=== PATIENT | male | born 1980 | race African-American/Black ===

== ENCOUNTER 2018-01-25 12:24 | Emergency (ER) | payer MEDICAID ==
[~2018-01-25] VITALS: Ht 185.4 cm; Wt 87.5 kg
--- NOTE | 2018-01-25 13:08 | Emergency Room Report ---
History of Present Illness General Chief Complaint: General Complaint Source: Patient Present Illness HPI Pt. presents to the ED c/o in severity pain and bleeding about the gums on the lower right side x 2 days. pt. reports hx of gum disease, however never bleeding and tenderness. Denies fevers or chills. denies recent dental procedures or hx of immune compromise. Denies CP, Palpitations, LOC, AMS, dizziness, Changes in Vision, Sensation, paresthesias, or a sudden severe headache. Allergies: Coded Allergies: No Known Allergies (Unverified , 01/25/18) Patient History Past Medical History: see triage record Past Surgical History: none Pertinent Family History: none Immunizations: UTD Reviewed Nursing Documentation: PMH: Agreed; PSxH: Agreed Nursing Documentation-PMH Past Medical History: No History, Except For Review of Systems All Other Systems: negative except mentioned in HPI Physical Exam Vital Signs Date Time Temp Pulse Resp B/P (MAP) Pulse Ox O2 Delivery O2 Flow Rate FiO2 01/25/18 12:40 98.0 78 14 124/90 98 Room Air 98.1 Sp02 EP Interpretation: reviewed, normal General Appearance: no apparent distress, alert, GCS 15, non-toxic Head: normocephalic, atraumatic Eyes: bilateral eye normal inspection, bilateral eye PERRL ENT: hearing grossly normal, normal pharynx, normal voice, other - gingivitis posterior gum line on the right lower side, poor dentition, several broken teeth , will treat for infection. no palpable fluctuance of the gum line. Neck: full range of motion Respiratory: lungs clear, normal breath sounds, speaking full sentences Cardiovascular #1: regular rate, rhythm Musculoskeletal: back normal, gait/station normal, normal range of motion, non- tender Neurologic: alert, oriented x3, responsive, motor strength/tone normal, sensory intact, speech normal, grossly normal Psychiatric: judgement/insight normal Skin: normal color, no rash, warm/dry, well hydrated Lymphatic: no adenopathy Medical Decision Making PA Attestation Dr. Ramos is my supervising Physician whom patient management has been discussed with. Diagnostic Impression: Primary Impression: Gingivitis, acute ER Course Pt. presents to the ED c/o in severity pain and bleeding about the gums on the lower right side. pt. reports hx of gum disease, however never bleeding and tenderness. Denies fevers or chills. denies recent dental procedures or hx of immune compromise. Denies CP, Palpitations, LOC, AMS, dizziness, Changes in Vision, Sensation, paresthesias, or a sudden severe headache. Ddx considered but are not limited to cellulitis, dental abscess, orbital cellulitis, d/l tooth, dental pain. trigeminal neuralgia Vital signs: are WNL, pt. is afebrile H&PE are most consistent with gingivitis posterior gum line on the right lower side, poor dentition, several broken teeth, will treat for infection. no palpable fluctuance of the gum line. ORDERS: none required at this time, the diagnosis is clinical ED INTERVENTIONS: None required at this time. d/w pt. Dental follow up and provided list of dental clinics. - d/w pt. to take vitamin C pills. DISCHARGE: At this time pt. is stable for d/c to home. Will provide printed patient care instructions, and any necessary prescriptions. Care plan and follow up instructions have been discussed with the patient prior to discharge. Last Vital Signs Date Time Temp Pulse Resp B/P (MAP) Pulse Ox O2 Delivery O2 Flow Rate FiO2 01/25/18 12:40 98.0 78 14 124/90 98 Room Air 98.1 Disposition: HOME, SELF-CARE Condition: Stable Scripts Ascorbic Acid* (VITAMIN C*) 500 Mg Tablet 500 MG ORAL TWICE A DAY for 10 Days, #20 TAB Prov: Natalya Yin 01/25/18 Acetaminophen* (TYLENOL EXTRA STRENGTH*) 500 Mg Tablet 500 MG ORAL Q6H PRN for Mild Pain/Temp > 100.5, #20 TAB 0 Refills Prov: Natalya Yin 01/25/18 Benzocaine (ANBESOL) 9 Gm Gel..gram. 9 GM MM QID for pain, #9 GM Prov: Natalya Yin 01/25/18 Chlorhexidine Gluconate (CHLORHEXIDINE GLUCONATE) 473 Ml Mouthwash 15 ML MM TID, #473 ML Prov: Natalya Yin 01/25/18 Amoxicillin* (AMOXIL*) 500 Mg Capsule 500 MG ORAL BID for 7 Days, #14 CAP Prov: Natalya Yin 01/25/18 Patient Instructions: Gingivitis Additional Instructions: Take medications as directed. Follow up with a Dentist in 3-5 days, even if your symptoms have resolved or if you require strong pain medications. --Please review list of Dental clinics, if you do not already have a Dentist Return sooner to ED if new symptoms occur, or current symptoms become worse. - Please note that this Emergency Department Report was dictated using [employer] intern technology software, occasionally this can lead to erroneous entry secondary to interpretation by the dictation equipment. Natalya Yin Jan 25, 2018 13:08
[2018-01-25] MEDS ORDERED: ANBESOL9 G1 MM (13:10)
[2018-01-25] MEDS ORDERED: VITAMIN C500 M1 ORAL (13:10)
[2018-01-25] MEDS ORDERED: TYLENOL EXTRA500 MG ORAL (13:10)
[2018-01-25] MEDS ORDERED: CHLORHEXIDINE473 ML MM (13:10)
[2018-01-25] MEDS ORDERED: AMOXICILLIN500 MG ORAL (13:10)
[2018-01-25 13:22] VITALS: BP 136/99
== END 2018-01-25 13:48 | disposition home or self-care (01) ==
LOC: EMR 13:00
DX: K05.00 Acute gingivitis, plaque induced (principal)
CPT/HCPCS: 99282

== ENCOUNTER 2020-04-30 10:49 | Emergency (ER) | payer MEDICAID, OTHER ==
[~2020-04-30] VITALS: Ht 185.4 cm; Wt 86.2 kg
[~2020-04-30 10:49] MED LIST: AMOXICILLIN500 MG ORAL; ANBESOL9 G1 MM; CHLORHEXIDINE473 ML MM; TYLENOL EXTRA500 MG ORAL; VITAMIN C500 M1 ORAL
[2020-04-30] MEDS: Aspirin Baby 81mg ORAL ONE ×2 (11:00→11:14)
[2020-04-30 11:06] VITALS: BP 131/83
--- NOTE | 2020-04-30 11:06 | NUR ---
ED Nurse Note: Patient from home and walked in due to SOB started last night with bodyaches, headachea and dry coughing. Patient states that he feels the same symtoms of what he had last december 2019 when he tested covid positive. AAO x4, ambulatory with non labored breathing.
--- NOTE | 2020-04-30 11:44 | NUR ---
ED Nurse Note: Collected blood, Flu swab and Covid19 swab then sent.
[2020-04-30 11:45] LABS: BASOPHILS % (AUTO) 1.1 % (0.0-2.0); EOSINOPHILS % (AUTO) 1.6 % (0.0-3.0); HEMATOCRIT 47.9 % (42.0-52.0); HEMOGLOBIN 14.5 G/DL (14.2-18.0); LYMPHOCYTES % (AUTO) 29.3 % (20.0-45.0); MEAN CORPUSCULAR VOLUME 87 FL (80-99); MONOCYTES % (AUTO) 8.1 % (1.0-10.0); NEUTROPHILS % (AUTO) 59.8 % (45.0-75.0); PLATELET COUNT 217 K/UL (150-450); RED BLOOD COUNT 5.52 M/UL (4.70-6.10); RED CELL DISTRIBUTION WIDTH 14.9 % (11.6-14.8)
--- NOTE | 2020-04-30 11:46 | NUR ---
Omari kurtz in EDM - 04/30/20 at 1149 by [facility] ED Nurse Note: RN pulled out ASA 325mg from pyxis and pt refused medication.
--- NOTE | 2020-04-30 11:48 | NUR ---
ED Nurse Note: Patient refused ASA and states that he has hemophilia. Dr Mccarthy was notified.
--- NOTE | 2020-04-30 11:49 | NUR ---
ED Nurse Note: RN pulled out ASA 162 mg from pyxis and opened medication but pt refused medication.
[2020-04-30 12:00] LABS: ANION GAP 8 mmol/L (5-15); BLOOD UREA NITROGEN 6 mg/dL (7-18); CALCIUM 8.7 MG/DL (8.5-10.1); CARBON DIOXIDE 27 MMOL/L (21-32); CHLORIDE 105 MMOL/L (98-107); POTASSIUM 4.1 MMOL/L (3.5-5.1); SODIUM 139 MMOL/L (136-145)
[2020-04-30 12:03] LABS: INR 1.1 (0.9-1.1)
[2020-04-30 12:11] LABS: ALANINE AMINOTRANSFERASE 25 U/L (12-78); ALBUMIN/GLOBULIN RATIO 1.1 (1.0-2.7); ALKALINE PHOSPHATASE 49 U/L (46-116); ASPARTATE AMINO TRANSFERASE 39 U/L (15-37); BILIRUBIN,TOTAL 1.1 MG/DL (0.2-1.0)
[2020-04-30 12:14] LABS: BILIRUBIN,DIRECT 0.2 MG/DL (0.0-0.3)
[2020-04-30 12:18] LABS: CKMB 0.8 NG/ML (0.0-3.6); CREATINE KINASE 891 U/L (26-308); FERRITIN 162 NG/ML (8-388); LACTATE DEHYDROGENASE 154 U/L (81-234)
[2020-04-30 12:27] VITALS: BP 129/80
--- NOTE | 2020-04-30 12:27 | NUR ---
ED Nurse Note: Patient states that he wants to go home at this time and signed AMA form. Dr Mccarthy was notified. Pt aware of potential complications from getting discharged. AAO x4, ambulates with steady gait. Removed ID band/IV access.
--- NOTE | 2020-04-30 12:33 | Emergency Room Report ---
History of Present Illness General Chief Complaint: Flu Like Symptoms Source: Patient Present Illness HPI 39-year-old male here with chest tightness and shortness of breath. Patient tested positive for Covid 4 months ago. He said that he was doing well until few days ago when he began to have the symptoms. He said that he is chest feels tight in the substernal region. The sensation does not radiate. Says he has also felt shortness of breath over the past 24 hours. No headache, vision change, fevers, chills, chest pain, palpitations, back pain, abdominal pain, nausea, vomiting, diarrhea, dysuria. has a history of hemophilia. Is not take any medications for his symptoms. 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 COVID-19 Screening: Positive COVID-19 COVID-19 Testing Source: january 07 Nursing Documentation-[facility] Past Medical History: No History, Except For Review of Systems All Other Systems: negative except mentioned in HPI Physical Exam Vital Signs Date Time Temp Pulse Resp B/P (MAP) Pulse Ox O2 Delivery O2 Flow Rate FiO2 04/30/20 10:56 98.2 84 18 121/84 (96) 86 Room Air Sp02 EP Interpretation: reviewed, normal General Appearance: no apparent distress, alert, non-toxic Head: normocephalic, atraumatic Eyes: bilateral eye normal inspection, bilateral eye PERRL ENT: hearing grossly normal, normal pharynx, no angioedema, normal voice Neck: full range of motion, supple/symm/no masses Respiratory: chest non-tender, lungs clear, normal breath sounds, speaking full sentences Cardiovascular #1: regular rate, rhythm, no edema Cardiovascular #2: 2+ carotid (R), 2+ carotid (L), 2+ radial (R), 2+ radial (L), 2+ dorsalis pedis (R), 2+ dorsalis pedis (L) Gastrointestinal: normal bowel sounds, non tender, soft, non-distended, no guarding, no rebound Rectal: deferred Genitourinary: normal inspection, no CVA tenderness Musculoskeletal: back normal, normal range of motion, gait/station normal, non- tender Neurologic: alert, motor strength/tone normal, oriented x3, sensory intact, responsive, speech normal Psychiatric: judgement/insight normal, memory normal, mood/affect normal, no suicidal/homicidal ideation Lymphatic: no adenopathy Medical Decision Making Diagnostic Impression: Primary Impression: Shortness of breath ER Course Laboratory Tests Test 04/30/20 11:20 04/30/20 11:30 White Blood Count 5.0 K/UL (4.8-10.8) Red Blood Count 5.52 M/UL (4.70-6.10) Hemoglobin 14.5 G/DL (14.2-18.0) Hematocrit 47.9 % (42.0-52.0) Mean Corpuscular Volume 87 FL (80-99) Mean Corpuscular Hemoglobin 26.2 PG (27.0-31.0) L Mean Corpuscular Hemoglobin Concent 30.2 G/DL (32.0-36.0) L Red Cell Distribution Width 14.9 % (11.6-14.8) H Platelet Count 217 K/UL (150-450) Mean Platelet Volume 7.0 FL (6.5-10.1) Neutrophils (%) (Auto) 59.8 % (45.0-75.0) Lymphocytes (%) (Auto) 29.3 % (20.0-45.0) Monocytes (%) (Auto) 8.1 % (1.0-10.0) Eosinophils (%) (Auto) 1.6 % (0.0-3.0) Basophils (%) (Auto) 1.1 % (0.0-2.0) Prothrombin Time 12.0 SEC (9.30-11.50) H Prothrombin Time INR 1.1 (0.9-1.1) Activated Partial Thromboplast Time 37 SEC (23-33) H D-Dimer 0.19 mg/L FEU (0.00-0.49) Sodium Level 139 MMOL/L (136-145) Potassium Level 4.1 MMOL/L (3.5-5.1) Chloride Level 105 MMOL/L (98-107) Carbon Dioxide Level 27 MMOL/L (21-32) Anion Gap 8 mmol/L (5-15) Blood Urea Nitrogen 6 mg/dL (7-18) L Creatinine 1.0 MG/DL (0.55-1.30) Estimated Glomerular Filtration Rate > 60 mL/min (>60) Glucose Level 87 MG/DL (74-106) Calcium Level 8.7 MG/DL (8.5-10.1) Magnesium Level 2.2 MG/DL (1.8-2.4) Ferritin 162 NG/ML (8-388) Total Bilirubin 1.1 MG/DL (0.2-1.0) H Direct Bilirubin 0.2 MG/DL (0.0-0.3) Aspartate Amino Transferase (AST) 39 U/L (15-37) H Alanine Aminotransferase (ALT) 25 U/L (12-78) Alkaline Phosphatase 49 U/L (46-116) Lactate Dehydrogenase 154 U/L (81-234) Total Creatine Kinase 891 U/L (26-308) H Creatine Kinase MB 0.8 NG/ML (0.0-3.6) Creatine Kinase MB Relative Index 0.0 Troponin I 0.006 ng/mL (0.000-0.056) C-Reactive Protein, Quantitative < 0.4 mg/dL (0.00-0.90) Pro-B-Type Natriuretic Peptide 5 pg/mL (0-125) Total Protein 7.6 G/DL (6.4-8.2) Albumin 4.0 G/DL (3.4-5.0) Globulin 3.6 g/dL Albumin/Globulin Ratio 1.1 (1.0-2.7) Lipase 112 U/L (73-393) Lactic Acid Level Pending Microbiology Date/Time Source Procedure Growth Status 04/30/20 11:36 Nose - Final Complete 04/30/20 11:36 Nose - Final Complete 04/30/20 11:20 Nasopharynx SARS-CoV-2 RdRp Gene Assay - Final Complete 39-year-old male here with shortness of breath. Patient had a low oxygen saturation of 86% on room air in triage. He had otherwise normal vital signs. He was placed on 2 L nasal cannula with good resolution of his hypoxia. I told the patient that due to his hypoxia he would require admission to the hospital for further work-up. Soon after his blood was drawn the patient ripped out his IV and was demanding to leave. The patient was of sound mind and alert and oriented x3 and fully decisional. I told the patient that if he were to leave AGAINST MEDICAL ADVICE that given his hypoxia and his symptoms that he could suffer severe morbidity and mortality and possible . Patient says that he understands but would rather be seen at a different hospital. I asked the deena samayoa why and he said "I would just feel safer there." Patient signed out AGAINST MEDICAL ADVICE and left without his paperwork Last Vital Signs Date Time Temp Pulse Resp B/P (MAP) Pulse Ox O2 Delivery O2 Flow Rate FiO2 04/30/20 11:06 98.3 83 18 131/83 86 Room Air Disposition: AGAINST MEDICAL ADVICE Referrals: [facility] Patient Instructions: Shortness of Breath, [id number] Parviz Mccarthy M.D. Apr 30, 2020 12:33
--- NOTE | 2020-05-02 16:40 | Cardiology Report ---
APPROVED REPORT EKG Measurement Heart [id number] <Conclusion> Normal sinus rhythm with sinus arrhythmia Early repolarization Normal ECG
== END 2020-04-30 12:27 | disposition left against medical advice (07) ==
LOC: EMR 11:49 → CANBEDREQ 12:35
DX: R06.02 Shortness of breath (principal); R07.9 Chest pain, unspecified; R09.02 Hypoxemia
CPT/HCPCS: 36415; 71045; 80053; 82248; 82550; 82553; 82728; 83605; 83615; 83690; 83735; 83880; 84484; 85025; 85379; 85610; 85730; 86140; 86710; 87040; 93005; U0002; Z7502; 99284

== ENCOUNTER 2020-06-05 10:13 | Emergency (ER) | payer OTHER ==
[~2020-06-05] VITALS: Ht 185.4 cm; Wt 88.0 kg
[2020-06-05 10:36] VITALS: BP 124/87
--- NOTE | 2020-06-05 10:37 | NUR ---
ED Nurse Note: walked in to ed c/o left lower toothache onset 2 days ago. pt denies any fall or trauma to face. vss, nad, aaox4, ambulatory.
[2020-06-05] MEDS ORDERED: AUGMENTIN 875-1 EAC1 ORAL (10:41)
--- NOTE | 2020-06-05 10:43 | Emergency Room Report ---
History of Present Illness General Chief Complaint: Toothache Source: Patient Present Illness HPI Disclaimer: Please note that this report is being documented using [employer] technology. This can lead to erroneous entry secondary to incorrect interpretation by the dictating instrument. HPI: 40 male presents for evaluation of tooth pain. Multiple caries. Did not do something hard 2 days ago fractured appears to be tooth #19. Surrounding gingival swelling according to patient. No purulent drainage or bleeding. No recent antibiotics. Unable to see his dentist yet. Has been using Orajel and Tylenol. No throat swelling or difficulty swallowing. Denies fever chills. No other complaints. 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 EOMI. poor dentition. Tooth #19 fractured to the gumline. Surrounding gingival edema and erythema. Tender to palpation. Resp: Normal work of breathing Skin: Intact. No abrasions, laceration or rash over the exposed skin MSK: Normal tone and bulk. Moving all extremities. No obvious deformity. Neuro: Awake and alert. Mentating appropriately Medical Decision Making Diagnostic Impression: Primary Impression: Tooth fracture ER Course 39-year-old male presents for evaluation dental pain. Consistent with fractured tooth and surrounding infection. Started on Augmentin. Offered inferior alveolar block for pain control but patient declined as he has a history of hemophilia and states he does not want a risk of bleeding or swelling. . He will continue NSAIDs. He will follow-up with dentistry. Patient instructed to return with new or worsening symptoms. Last Vital Signs Date Time Temp Pulse Resp B/P (MAP) Pulse Ox O2 Delivery O2 Flow Rate FiO2 06/05/20 10:36 99.1 16 124/87 98 06/05/20 10:13 70 Disposition: HOME, SELF-CARE Condition: Stable Scripts Amoxicillin/Potassium Clav 875-125* (AUGMENTIN 875-125 TABLET*) 1 Each Tablet 1 TAB ORAL TWICE A DAY for 7 Days, #14 TAB Prov: Ton Kaplan MD 06/05/20 Referrals: SHARRI MELENDEZ,REFERRING (PCP) [facility] INFO: New Patient Screening: Tue- 8am-1pm Tue- 9am -5pm and Tue 2pm-5pm [facility] PEDS [facility] - [facility] Location: 2nd Floor Room [address] INFO: Tue & Tue-8:30am-4:30pm, - 8:30am - 7pm, - Emergency only, Tue- 8:30am-11:30am and afternoon emergency only [facility] Pediatrics(age 2-12) - Orthodontic Clinic - Hours: Tue,Tue,, 8:15am and 1pm (new patient screening), Tu. 1pm. Emergency clinic Tuesday - Tuesday 8:30am and 1pm, Tues. 1pm. *Call to check if clinic is open; No appointment necessary for the first visit (new patient screening), Arrive 15-30 minutes early as it is first come, first serve. Patient Instructions: Dental Pain Additional Instructions: See dentist as soon as possible for fixation of the fractured tooth. Take the antibiotics as prescribed. Return with new or worsening symptoms. Ton Kaplan MD Jun 05, 2020 10:43
[2020-06-05] MEDS ORDERED: Bupivacaine 0.5% Inj 30 ml vial INJ ONE (10:45)
[2020-06-05] MEDS ORDERED: HYDROcodone/Acetamin 5/325 tab ORAL ONE (11:00)
[2020-06-05 11:01] VITALS: BP 127/78
--- NOTE | 2020-06-05 11:01 | NUR ---
ER DISCHARGE NOTE: Patient is cleared to be discharged per ERMD, pt is aox4, on room air, with stable vital signs. pt was given dc and prescription instructions, pt was able to verbalize understanding, pt id band removed without complications. pt is able to ambulate with steady gait. pt took all belongings.
== END 2020-06-05 11:01 | disposition home or self-care (01) ==
LOC: EMR 10:39
DX: S02.5XXA Fracture of tooth (traumatic), initial encounter for closed fracture (principal); X58.XXXA Exposure to other specified factors, initial encounter; Y93.9 Activity, unspecified; Y92.9 Unspecified place or not applicable
CPT/HCPCS: S0020; Z7502; 99282

== ENCOUNTER 2020-06-15 09:59 | Emergency (ER) | payer OTHER ==
[~2020-06-15] VITALS: Ht 185.4 cm; Wt 88.9 kg
[~2020-06-15 09:59] MED LIST changes: +AUGMENTIN 875-1 EAC1 ORAL
[2020-06-15 10:08] VITALS: BP 127/85
--- NOTE | 2020-06-15 10:16 | NUR ---
ED Nurse Note: Patient from home and walked in due to left lower gum/tooth pain. patient was seen here and was prescribed with antibiotics. Patient has a dentist appt on 06/25 btu states that pain is consistent. patient is AAOx4 and ambulatory. No respiratory distress.
--- NOTE | 2020-06-15 10:30 | Emergency Room Report ---
History of Present Illness General Chief Complaint: Toothache Source: Patient Present Illness HPI Patient is a 39-year-old male presents for increased left-sided lower mandibular pain. Recent hospital visit for increased dental pain. Reports having prior history of hemophilia B. Denies any fever. Increased pain with movement. States he has a scheduled appointment for the dentist. Denies any difficulty s wallowing. Has been taking Augmentin without any improvement. Reports having minimal bleeding. 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 COVID-19 Screening: Negative COVID-19 COVID-19 Testing Source: unk Patient History Past Medical History: see triage record Reviewed Nursing Documentation: PMH: Agreed; PSxH: Agreed Nursing Documentation-PMH Past Medical History: No History, Except For Review of Systems All Other Systems: negative except mentioned in HPI Physical Exam Vital Signs Date Time Temp Pulse Resp B/P (MAP) Pulse Ox O2 Delivery O2 Flow Rate FiO2 06/15/20 10:08 98.4 65 18 127/85 99 Room Air General Appearance: well appearing, no apparent distress, alert, GCS 15, non- toxic Head: normocephalic, atraumatic ENT: hearing grossly normal, normal voice Neck: full range of motion, supple Respiratory: no respiratory distress, speaking full sentences Musculoskeletal: no calf tenderness Neurologic: normal gait Psychiatric: mood/affect normal Skin: no rash Medical Decision Making Diagnostic Impression: Primary Impression: Tooth fracture Additional Impression: Dental infection ER Course Patient presented for left-sided dental pain. Differential diagnosis include was not limited to dental caries, fracture, abscess among others. Patient does appear to have some evidence of severe dental caries to multiple areas. There does appear to be some gingival swelling which is spontaneously draining slightl y. There is no significant bleeding at this time. Patient will be discharged home. He was given prescription for further antibiotics and pain medications. He is advised to follow-up with his dentist. Is advised to return if worse. This medical record is generated with [employer] general education instructor software. There may be some general education instructor discrepancies related to use of this software Last Vital Signs Date Time Temp Pulse Resp B/P (MAP) Pulse Ox O2 Delivery O2 Flow Rate FiO2 06/15/20 10:08 98.4 65 18 127/85 (99) 99 Room Air Status: improved Disposition: HOME, SELF-CARE Condition: Stable Scripts Hydrocodone Bit/Acetaminophen 5-325* (NORCO 5-325 TABLET*) 1 Each Tablet 1 TAB ORAL Q6H PRN for FOR PAIN, #12 TAB 0 Refills Prov: Agusto Spencer MD 06/15/20 Amoxicillin/Potassium Clav 875-125* (AUGMENTIN 875-125 TABLET*) 1 Each Tablet 1 TAB ORAL TWICE A DAY, #14 TAB Prov: Agusto Spencer MD 06/15/20 Referrals: SHARRI MELENDEZ,REFERRING (PCP) Agusto Spencer MD Jun 15, 2020 10:30
[2020-06-15] MEDS ORDERED: AUGMENTIN 875-1 EAC1 ORAL (10:34)
[2020-06-15] MEDS ORDERED: NORCO 5-325 TA1 EAC1 ORAL (10:34)
[2020-06-15 11:04] VITALS: BP 134/70
--- NOTE | 2020-06-15 11:04 | NUR ---
ER DISCHARGE NOTE: Patient is cleared to be discharged per ERMD, pt is aox4, on room air, with stable vital signs. pt was given dc and prescription instructions, pt was able to verbalize understanding, pt id band removed. pt is able to ambulate with steady gait. pt took all belongings.
== END 2020-06-15 11:04 | disposition home or self-care (01) ==
LOC: EMR 10:21
DX: K08.89 Other specified disorders of teeth and supporting structures (principal)
CPT/HCPCS: 99281

== ENCOUNTER 2020-06-23 14:38 | Emergency (ER) | payer OTHER ==
[~2020-06-23] VITALS: Ht 185.4 cm; Wt 88.0 kg
[~2020-06-23 14:38] MED LIST changes: +NORCO 5-325 TA1 EAC1 ORAL
[2020-06-23 15:00] VITALS: BP 120/87
--- NOTE | 2020-06-23 15:00 | NUR ---
ED Nurse Note: pt presents to ED c/o L upper back px s/p fall 1 week ago. pt denies LOC or head injury. reports decreaed ROM and pain with movement
--- NOTE | 2020-06-23 15:10 | NUR ---
ED Nurse Note: pt refused tylenol
--- NOTE | 2020-06-23 15:20 | NUR ---
ED Nurse Note: pt does not want to wait for CT scan, refusing to sign AMA paperwork. pt refused all meds, allowed RN to place lidocaine patch on L upper back.
[2020-06-23] MEDS ORDERED: Acetaminophen 500mg (ES) tab ORAL ONE (15:30)
[2020-06-23 15:40] VITALS: BP 120/87
--- NOTE | 2020-06-23 15:40 | NUR ---
ED Nurse Note: pt left against medical advice, refused to sign any paperwork. all medical devices such as ID band were removed. pt left taking all belongings and ambulated wtih steady gait from ER
--- NOTE | 2020-06-23 20:25 | Emergency Room Report ---
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 Reports that about 1 week ago he was moving furniture in his account, his chest and he landed on his back now is complaining of left upper back however keeps saying that his right upper back hurts but points to the left upper back. Denies any head injury loss of consciousness. Reports that has been taking Tylenol with minimal relief. Reports that he cannot take anything within the ibuprofen family due to hemophilia and also cannot take any muscle relaxant due to upset stomach. Patient has range of motion of head and neck, no bony tenderness noted. Patient is neurovascularly intact. Nexus criteria is negative. Denies any shortness of breath. Speaks in full sentences. Patient agrees to CT chest to rule out fracture and Tylenol in house however leaves AGAINST MEDICAL ADVICE before CT chest is done and reports that he is in too much pain he just wants to go home. 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 COVID-19 Screening: Negative COVID-19 COVID-19 Testing Source: clinic Patient History Past Medical History: see triage record Past Surgical History: none Pertinent Family History: none Immunizations: UTD Reviewed Nursing Documentation: PMH: Agreed; PSxH: Agreed Review of Systems All Other Systems: negative except mentioned in HPI Physical Exam Vital Signs Date Time Temp Pulse Resp B/P (MAP) Pulse Ox O2 Delivery O2 Flow Rate FiO2 06/23/20 14:42 98.6 82 18 120/87 (98) 98 Room Air Sp02 EP Interpretation: reviewed, normal General Appearance: no apparent distress, alert, GCS 15, non-toxic Head: normocephalic, atraumatic Eyes: bilateral eye normal inspection, bilateral eye PERRL ENT: hearing grossly normal, no angioedema, normal voice Neck: full range of motion, supple, thyroid normal, no meningismus, no bony tend, supple/symm/no masses Respiratory: chest non-tender, no respiratory distress, no retraction, no accessory muscle use Cardiovascular #1: regular rate, rhythm, no edema Cardiovascular #2: 2+ carotid (R), 2+ carotid (L), 2+ radial (R), 2+ radial (L), 2+ dorsalis pedis (R), 2+ dorsalis pedis (L) Gastrointestinal: soft, no mass, no bruit Rectal: deferred Genitourinary: no CVA tenderness Musculoskeletal: back normal, no calf tenderness Neurologic: alert, motor strength/tone normal, oriented x3, sensory intact, responsive, speech normal Psychiatric: judgement/insight normal, memory normal, mood/affect normal, no suicidal/homicidal ideation Skin: no rash Lymphatic: no adenopathy Medical Decision Making PA Attestation All diagnosis and treatment plans were discussed and reviewed by my supervising physician Dr. 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 Reports that about 1 week ago he was moving furniture in his account, his chest and he landed on his back now is complaining of left upper back however keeps saying that his right upper back hurts but points to the left upper back. Kelvin es any head injury loss of consciousness. Reports that has been taking Tylenol with minimal relief. Reports that he cannot take anything within the ibuprofen family due to hemophilia and also cannot take any muscle relaxant due to upset stomach. Patient has range of motion of head and neck, no bony tenderness noted. Patient is neurovascularly intact. Nexus criteria is negative. Denies any shortness of breath. Speaks in full sentences. Patient agrees to CT chest to rule out fracture and Tylenol in house however leaves AGAINST MEDICAL ADVICE before CT chest is done and reports that he is in too much pain he just wants to go home. Ddx considered but are not limited to: Chest contusion, rib fracture, T-spine fracture, chest contusion Vital signs: are WNL, pt. is afebrile H&PE are most consistent with patient left AGAINST MEDICAL ADVICE ORDERS: CT chest no contrast ED INTERVENTIONS: Tylenol Patient left AGAINST MEDICAL ADVICE understood the risks without having a CT scan however refused to sign AGAINST MEDICAL ADVICE form. Stable at time of discharge. Last Vital Signs Date Time Temp Pulse Resp B/P (MAP) Pulse Ox O2 Delivery O2 Flow Rate FiO2 06/23/20 15:40 98.6 18 120/87 98 Room Air 06/23/20 15:00 82 Disposition: AGAINST MEDICAL ADVICE Condition: Stable Referrals: SHARRI MELENDEZ,REFERRING (PCP) Abbi Dia Jun 23, 2020 20:25
== END 2020-06-23 15:40 | disposition left against medical advice (07) ==
LOC: EMR 14:40
DX: S29.9XXA Unspecified injury of thorax, initial encounter (principal); W19.XXXA Unspecified fall, initial encounter; Y92.9 Unspecified place or not applicable; R51.9 Headache, unspecified; M54.2 Cervicalgia
CPT/HCPCS: 99282

== ENCOUNTER 2020-07-14 15:08 | Emergency (ER) | payer OTHER ==
[~2020-07-14] VITALS: Ht 185.4 cm; Wt 87.5 kg
[2020-07-14] MEDS ORDERED: Methocarbamol 750mg tab ORAL ONE (15:45)
--- NOTE | 2020-07-14 16:24 | NUR ---
ED Nurse Note: Pt AMA. stating he needs to leave due to family emergency and will return. pt ambulatory and stable. Pt signed AMA form, informed of risk
[2020-07-14 16:58] VITALS: BP 139/89
[2020-07-14 17:00] VITALS: BP 139/89
--- NOTE | 2020-07-14 19:19 | Emergency Room Report ---
History of Present Illness General Chief Complaint: Lower Back Pain or Injury Source: Patient Present Illness HPI 39-year-old male with no signal past medical history here complaining of 2 weeks of neck left scapular pain x2 weeks after falling down the stairs. Patient denies any head injury loss of consciousness. Patient was also seen at [facility] 2 weeks ago for similar complaint of her left months before any imaging was done. Patient was told today that will be given Toradol and Robaxin however reported that cannot take any NSAIDs and she is allergic to and also does not know if he is allergic to Robaxin as he says" I am allergic to most muscle relaxants." Denies any tingling or numbness. Denies any headache and dizziness. Cures history was done and patient was extensive. However patient denies taking any narcotic at this time. Denies all other injuries. 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 Patient History Past Medical History: see triage record Past Surgical History: none Pertinent Family History: none Immunizations: UTD Reviewed Nursing Documentation: PMH: Agreed; PSxH: Agreed Nursing Documentation-PMH Past Medical History: No History, Except For Review of Systems All Other Systems: negative except mentioned in HPI Physical Exam Vital Signs Date Time Temp Pulse Resp B/P (MAP) Pulse Ox O2 Delivery O2 Flow Rate FiO2 07/14/20 15:14 97.7 84 16 139/89 (106) 99 Room Air Sp02 EP Interpretation: reviewed, normal General Appearance: no apparent distress, alert, GCS 15, non-toxic Head: normocephalic, atraumatic Eyes: bilateral eye normal inspection, bilateral eye PERRL ENT: hearing grossly normal, normal pharynx, no angioedema, normal voice Neck: full range of motion, supple, thyroid normal, no meningismus, no bony tend, supple/symm/no masses Respiratory: chest non-tender, lungs clear, normal breath sounds, no rhonchi, no respiratory distress, no retraction, no accessory muscle use, speaking full sentences Cardiovascular #1: regular rate, rhythm, no edema Cardiovascular #2: 2+ carotid (R), 2+ carotid (L), 2+ radial (R), 2+ radial (L), 2+ dorsalis pedis (R), 2+ dorsalis pedis (L) Gastrointestinal: normal bowel sounds, non tender, soft, non-distended, no guarding, no rebound Rectal: deferred Genitourinary: no CVA tenderness Musculoskeletal: back normal Neurologic: alert, motor strength/tone normal, oriented x3, sensory intact, responsive, speech normal Psychiatric: judgement/insight normal, memory normal, mood/affect normal, no suicidal/homicidal ideation Skin: no rash Lymphatic: no adenopathy Medical Decision Making PA Attestation All my diagnosis and treatment plans were reviewed ad discussed with my supervising physician Dr. Petersen Diagnostic Impression: Primary Impression: Unspecified injury of lower back, sequela ER Course 39-year-old male with no signal past medical history here complaining of 2 weeks of neck left scapular pain x2 weeks after falling down the stairs. Patient denies any head injury loss of consciousness. Patient was also seen at [facility] 2 weeks ago for similar complaint of her left months before any imaging was done. Patient was told today that will be given Toradol and Robaxin however reported that cannot take any NSAIDs and she is allergic to and also does not know if he is allergic to Robaxin as he says" I am allergic to most muscle relaxants." Denies any tingling or numbness. Denies any headache and dizziness. Cures history was done and patient was extensive. However patient denies taking any narcotic at this time. Denies all other injuries. Ddx considered but are not limited to: Cervical sprain versus strain versus fracture, rib fracture versus pneumothorax versus chest contusion Vital signs: are WNL, pt. is afebrile H&PE are most consistent with: Patient left AGAINST MEDICAL ADVICE ORDERS: C-spine CT, CT posterior chest no contrast. Rib fracture and scapular fracture ER intervention: Robaxin p.o. Patient left AGAINST MEDICAL ADVICE, completely aware of the risks any imaging and proper management. Last Vital Signs Date Time Temp Pulse Resp B/P (MAP) Pulse Ox O2 Delivery O2 Flow Rate FiO2 07/14/20 17:00 97.7 16 139/89 99 Room Air 07/14/20 16:58 78 Disposition: AGAINST MEDICAL ADVICE Condition: Stable Referrals: SHARRI MELENDEZ,REFERRING (PCP) Abbi Dia Jul 14, 2020 19:19
[2020-07-14] MEDS ORDERED: TYLENOL EXTRA500 MG ORAL (19:55)
== END 2020-07-14 16:30 | disposition left against medical advice (07) ==
LOC: EMR 15:39
DX: S39.92XA Unspecified injury of lower back, initial encounter (principal); W10.9XXA Fall (on) (from) unspecified stairs and steps, initial encounter; Y92.9 Unspecified place or not applicable
CPT/HCPCS: 99282

== ENCOUNTER 2020-07-14 18:50 | Emergency (ER) | payer OTHER ==
[~2020-07-14] VITALS: Ht 185.4 cm; Wt 86.2 kg
[2020-07-14 18:52] VITALS: BP 131/93
[2020-07-14] MEDS ORDERED: Tylenol #3 tab (300mg/30mg) ORAL ONE (19:15)
--- NOTE | 2020-07-14 19:50 | Diagnostic Imaging Report ---
EXAM: XR Left Scapula Complete CLINICAL HISTORY: PAIN TECHNIQUE: Frontal and Y-view of the left scapula. COMPARISON: No relevant prior studies available. FINDINGS: Bones/joints: No fracture or malalignment. Well-demarcated lucent lesion within the mid humeral shaft measuring 1.4 x 0.8 cm. Soft tissues: Unremarkable. IMPRESSION: 1. No fracture or malalignment. 2. Well-demarcated lucent lesion within the mid humeral shaft measuring 1.4 x 0.8 cm. Benign features.
[2020-07-14] MEDS ORDERED: TYLENOL EXTRA500 MG ORAL (19:55)
--- NOTE | 2020-07-14 20:04 | NUR ---
ED Nurse Note: Received pt from initial nurse. Pt is A&Ox3, resting comfortbaly on stretcher. Pt refused vitals. Pt cleared by health care Provider for discharge. DC instructions/prescription was given and explained to pt and verbalized understanding of teachings. All medical deviecs such as ID band removed. Pt is AAO x4, ambulatory and left with all personal belongings.
--- NOTE | 2020-07-14 21:23 | Emergency Room Report ---
History of Present Illness General Chief Complaint: Neck Pain Source: Patient Present Illness HPI 39-year-old male presents complaining of upper back pain. States he fell 2 weeks ago on his back while lifting heavy objects. Has had persistent pain to his left upper back. Pain is 9 out of 10, dull, nonradiating. Denies any other injuries. Denies any neck pain. no other aggravating relieving factors. 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 Patient History Past Medical History: none Past Surgical History: none Pertinent Family History: none Social History: Denies: smoking, alcohol use, drug use Immunizations: UTD Reviewed Nursing Documentation: PMH: Agreed; PSxH: Agreed Nursing Documentation-PMH Past Medical History: No History, Except For Review of Systems All Other Systems: negative except mentioned in HPI Physical Exam Vital Signs Date Time Temp Pulse Resp B/P (MAP) Pulse Ox O2 Delivery O2 Flow Rate FiO2 07/14/20 18:52 98.1 58 16 131/93 (106) 99 Room Air Sp02 EP Interpretation: reviewed, normal General Appearance: no apparent distress, alert, GCS 15, non-toxic Head: normocephalic, atraumatic Eyes: bilateral eye normal inspection, bilateral eye PERRL ENT: hearing grossly normal, normal pharynx, no angioedema, normal voice Neck: full range of motion, supple/symm/no masses Respiratory: chest non-tender, lungs clear, normal breath sounds, speaking full sentences Cardiovascular #1: regular rate, rhythm, no edema Cardiovascular #2: 2+ carotid (R), 2+ carotid (L), 2+ radial (R), 2+ radial (L), 2+ dorsalis pedis (R), 2+ dorsalis pedis (L) Gastrointestinal: normal bowel sounds, non tender, soft, non-distended, no guarding, no rebound Rectal: deferred Genitourinary: normal inspection, no CVA tenderness Musculoskeletal: back normal, normal range of motion, gait/station normal, tender - TTP L scapula. Neurologic: alert, motor strength/tone normal, oriented x3, sensory intact, responsive, speech normal Psychiatric: judgement/insight normal, memory normal, mood/affect normal, no suicidal/homicidal ideation Reflexes: 3+ bicep (R), 3+ bicep (L), 3+ tricep (R), 3+ tricep (L), 3+ knee (R), 3+ knee (L) Lymphatic: no adenopathy Medical Decision Making Diagnostic Impression: Primary Impression: Contusion of scapula Qualified Codes: S40.012A - Contusion of left shoulder, initial encounter ER Course Hospital Course 39-year-old male presents with upper back pain status post fall x2 weeks Differential diagnoses include: Fracture, dislocation, sprain, contusion Clinical course Patient placed on stretcher. After initial history and physical, I ordered pain medications and chest x-ray and left scapula film X-rays show no fractures or dislocation. Discussed findings with patient. Likely contusion. Recommend anti-inflammatories, ice, modified activity. Safe for discharge with close outpatient follow-up. I will provide referrals Diagnosis -contusion of scapula Stable and discharged to home with prescription for tylenol. apply ice, keep e levated. weight bear as tolerated. Followup with PMD. Return to ED if symptoms recur or worsen Chest X-Ray Diagnostic Results Chest X-Ray Diagnostic Results : Chest X-Ray Ordered: Yes # of Views/Limited/Complete: 1 View Indication: Other EP Interpretation: Yes Interpretation: no consolidation, no effusion, no pneumothorax, no acute cardiopulmonary disease Impression: No acute disease Electronically Signed by: Electronically signed by Handy Petersen MD Other X-Ray Diagnostic Results Other X-Ray Diagnostic Results : X-Ray ordered: L scapula # of Views/Limited Vs Complete: 2 View Indication: Pain EP Interpretation: Yes Interpretation: no dislocation, no soft tissue swelling, no fractures Impression: No acute disease Electronically Signed by: Electronically signed by Handy Petersen MD Last Vital Signs Date Time Temp Pulse Resp B/P (MAP) Pulse Ox O2 Delivery O2 Flow Rate FiO2 07/14/20 18:52 98.1 58 16 131/93 (106) 99 Room Air Status: improved Disposition: HOME, SELF-CARE Condition: Stable Scripts Acetaminophen* (TYLENOL EXTRA STRENGTH*) 500 Mg Tablet 500 MG ORAL Q8H PRN for Prn Headache/Temp > 101, #30 TAB 0 Refills Prov: Handy Petersen MD 07/14/20 [facility] 24 hour /7 days a week by Appointment Only [address] [place] [id number] Patient Instructions: Contusion, [id number] Handy Petersen MD Jul 14, 2020 21:23
--- NOTE | 2020-07-15 18:06 | Diagnostic Imaging Report ---
Indication: Chest pain Technique: One view of the chest Comparison: 04/30/2020 Findings: The lungs and pleural spaces are clear. The heart size is normal. Findings are unchanged Impression: No acute process
== END 2020-07-14 20:00 | disposition home or self-care (01) ==
LOC: EMR 19:13
DX: S40.012A Contusion of left shoulder, initial encounter (principal); X50.0XXA Overexertion from strenuous movement or load, initial encounter; Y92.9 Unspecified place or not applicable; R07.9 Chest pain, unspecified
CPT/HCPCS: 71045; 73010; Z7502; 99284

== ENCOUNTER 2020-08-02 09:25 | Emergency (ER) | payer OTHER ==
[~2020-08-02] VITALS: Ht 185.4 cm; Wt 88.0 kg
[2020-08-02 09:35] VITALS: BP 137/89
--- NOTE | 2020-08-02 09:47 | NUR ---
went to assess pt, he was coming out the door saying if the dr isn't going to do anything he's going to leave. he said he can get referrals on google himself that he doesn't need a dentist. pt walked out door. dr went to speak with pt informed him he left saying he doesn't need any referrals.
--- NOTE | 2020-08-02 09:52 | Emergency Room Report ---
History of Present Illness General Chief Complaint: Toothache Source: Patient Present Illness HPI Disclaimer: Please note that this report is being documented using [employer] technology. This can lead to erroneous entry secondary to incorrect interpretation by the dictating instrument. HPI: 39-year-old male presents for evaluation of gingival pain. Present several weeks. He has a history of dental caries and tooth fractures. Seen multiple times for similar complaints. He has been on Augmentin for 1 week started at urgent care and has been using Peridex rinse. Denies significant bleeding. Reports pain in the left lower jaw. Has not yet seen a dentist. 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 EOMI. Multiple dental caries and apparent fractures of teeth eighteen and nineteen. Mild hyperemia of the gingiva but no significant edema. Resp: Normal work of breathing Skin: Intact. No abrasions, laceration or rash over the exposed skin MSK: Normal tone and bulk. Moving all extremities. No obvious deformity. Neuro: Awake and alert. Mentating appropriately Medical Decision Making Diagnostic Impression: Primary Impression: Dental caries Additional Impression: Pain in gums ER Course Is a 39-year-old male presenting with gingival pain. Multiple visits for tooth aches in the past. Has not yet to see a dentist for his fractured teeth. Patient is taking antibiotics and using Peridex rinse. Again I discussed the co ed for dental extraction but the patient replied "I do not need a dentist." I had plan to change the patient's antibiotics as he has been on Augmentin without improvement however the patient left the emergency room prior to discharge. Last Vital Signs Date Time Temp Pulse Resp B/P (MAP) Pulse Ox O2 Delivery O2 Flow Rate FiO2 08/02/20 09:35 98.4 68 18 137/89 (105) 98 Room Air Disposition: HOME, SELF-CARE Condition: Stable Referrals: [facility](age 2-12) - Orthodontic Clinic - Hours: Mon,Tue,, 8:15am and 1pm (new patient screening), Tues. 1pm. Emergency clinic Tuesday - Tuesday 8:30am and 1pm, Tues. 1pm. *Call to check if clinic is open; No appointment necessary for the first visit (new patient screening), Arrive 15-30 minutes early as it is first come, first serve. [facility] PEDS [facility] - [facility] Location: 2nd Floor Room [id number] [facility] INFO: Tue & Tue-8:30am-4:30pm, - 8:30am - 7pm, - Emergency only, Tue- 8:30am-11:30am and afternoon emergency only [facility] INFO: New Patient Screening: Tue- 8am-1pm Tue- 9am -5pm and Fri 2pm-5pm Patient Instructions: Dental Pain Additional Instructions: Follow-up with dentistry as soon as possible for tooth extraction. Continue antibiotics. Please follow-up with your primary care doctor in the next 1 to 3 days to discuss this emergency department visit and for reevaluation. If you have any new or worsening symptoms please return to the emergency department for reevaluation. Please note that this report is being documented using [employer] technology. This can lead to erroneous entry secondary to incorrect interpretation by the dictating instrument. Ton Kaplan MD Aug 02, 2020 09:52
[2020-08-02 09:53] VITALS: BP 137/89
== END 2020-08-02 10:00 | disposition home or self-care (01) ==
LOC: EMR 09:45
DX: K02.9 Dental caries, unspecified (principal); K13.79 Other lesions of oral mucosa; Z88.6 Allergy status to analgesic agent; Z86.16 Personal history of COVID-19
CPT/HCPCS: 99281